=== PATIENT | female | born 2005 | race Caucasian/White ===

== ENCOUNTER 2024-07-15 06:28 | Outpatient (REF) | payer OTHER, SELFPAY ==
--- NOTE | ~2024-07-15 | US_ITS ---
EXAMINATION: US PELVIS CLINICAL INFORMATION: Dysmenorrhea and pelvic pain COMPARISON: None available. TECHNIQUE: Ultrasound of the pelvis is performed using both transabdominal and transvaginal transducers along with Doppler. Transvaginal imaging is performed due to inadequate visualization transabdominally. FINDINGS: Uterus: The uterus is anteverted and measures 6.6 x 2.0 x 3.9 cm. Arcuate uterus apparent. The double wall endometrial thickness is 4 mm. The uterus is smooth in contour and has normal myometrial echogenicity. No visible fibroid.Trace fluid, in the lower uterine segment. Adnexa: Both ovaries are visualized. No suspicious mass. There is no ovarian torsion. No todd ascites. Right ovary measures 2.2 x 3.0 x 2.1 cm. Volume 6.9 mL. Left ovary measures 2.7 x 2.0 x 1.9 cm. And 5.1 mm. US/US pelvic and transvaginal IMPRESSION: Unremarkable study. Electronically signed by: Abad Tena MD 07/15/2024 10:19 AM [facility]
== END 2024-07-15 06:29 | disposition home or self-care (01) ==
LOC: HO.UMASIMG 06:28
PROVIDERS: Visit Provider Family Medicine
DX: N92.6 Irregular menstruation, unspecified (principal)
CPT/HCPCS: 76830; 76856